=== PATIENT | female | born 1975 | race Two or more races ===

== ENCOUNTER → 2025-05-13 | Outpatient (CLI) | payer MEDICAID, SELFPAY ==
--- NOTE | 2025-05-13 08:00 | XR_ITS ---
Examination: Breast ultrasound, unilateral, right complete Date and time of exam: May 13, 2025, 0835 hours INDICATIONS: Palpable lump with pain in the lower outer right breast note is beginning one month ago Technique: Real-time rousseau scale ultrasonographic imaging performed right breast including all 4 quadrants as well as nipple retroareolar and axillary region. Findings: 7:00 solid mass with indistinct margins 27 x 20 x 25 mm 8:00 nodule 12 x 12 mm poorly circumscribed 8:00 nodule circumscribed 8 x 9 mm IMPRESSION: BI-RADS Category 4: Suspicious for malignancy Suspicious nodule 7:00 position right breast indistinct margins, 2.7 x 2.0 x 2.5 cm, biopsy is needed to exclude breast carcinoma, this mass is amenable to ultrasound-guided breast biopsy for diagnosis
--- NOTE | 2025-05-13 08:30 | XR_ITS ---
Examination: Diagnostic digital mammography, bilateral Computer aided detection 3-D breast Tomosynthesis, bilateral Date and time of exam: April 16, 2025, 0854 hours INDICATIONS: Patient states right breast lump one month Technique: Nonmagnified MLO, CC views of the breasts to been obtained, reconstructed from 3-D Tomosynthesis images. R2 computer aided detection program utilized for evaluation of suspicious masses and/or abnormal calcifications. 3-D Tomosynthesis images obtained. Findings: The breasts are heterogeneously dense, which may obscure small masses 25 mm nodule indistinct margins 7 to 8:00 position right breast at the palpable marker site 8:00 nodule 12 mm circumscribed Bilobed nodule circumscribed 11 mm retroareolar right breast 22 mm focal asymmetry upper outer left breast posterior depth Impression: BI-RADS Category 4: Suspicious for malignancy Suspicious nodule, 25 mm, 7- 8:00 position right breast of the palpable marker site also noted on the right breast sonogram today, biopsy is needed to exclude breast carcinoma, this mass is amenable to ultrasound-guided breast biopsy for diagnosis Recommend follow-up spot tomographic views of 22 mm focal asymmetry upper outer left breast as well as left breast sonography to complete the workup.
== END | disposition home or self-care (01) ==
LOC: CDIM 08:02
PROVIDERS: Referring Provider Internal Medicine; Visit Provider Internal Medicine
DX: R92.343 Mammographic extreme density, bilateral breasts (principal); N63.13 Unspecified lump in the right breast, lower outer quadrant; N64.89 Other specified disorders of breast
CPT/HCPCS: 76641; 77062; 77066; G0279

== ENCOUNTER → 2025-07-16 | Outpatient (CLI) | payer MEDICAID, SELFPAY ==
[2025-07-15 12:11] LABS: Basophils # (Auto) 0.0 Thou/mm3 (0.0-0.2); Basophils % (Auto) 0 % (0-2.5); Eosinophils # (Auto) 0.1 Thou/mm3 (0.0-0.5); Eosinophils % (Auto) 1 % (0-10); Hematocrit 43.8 % (36.0-46.0); Hemoglobin 14.7 g/dL (12.0-16.0); Immature Granulocytes Auto 0.04 Thou/mm3 (0.00-0.00); Lymphocytes # (Auto) 2.4 Thou/mm3 (1.0-4.8); Lymphocytes % (Auto) 24 % (10-50); Mean Corpuscular HGB Conc 33.6 g/dl (31.0-37.0); Mean Corpuscular Hemoglobin 31.6 pg (25.0-35.0); Mean Corpuscular Volume 94 fL (80-100); Monocytes # (Auto) 1.0 Thou/mm3 (0.0-0.8); Monocytes % (Auto) 10 % (0-12); Neutrophils # (Auto) 6.3 Thou/mm3 (1.8-7.7); Neutrophils % (Auto) 64 % (37-80); Nucleated Red Blood Cell # 0.00 Thou/mm3 (0.00-0.00); Nucleated Red Blood Cell % 0 /100 WBC (0); Platelet Count 380 Thou/mm3 (140-440); RDW Standard Deviation 44.1 fL (36.4-46.3); Red Blood Count 4.65 Miln/mm3 (4.00-5.20); White Blood Count 9.9 Thou/mm3 (3.6-11.0)
[2025-07-15 12:37] LABS: INR 1.0 (0.9-1.3); Partial Thromboplastin Time 26.0 Seconds (22.0-36.0); Prothrombin Time 10.4 Seconds (9.0-12.2)
--- NOTE | 2025-07-16 08:30 | XR_ITS ---
Examinations: Ultrasound-guided percutaneous breast biopsy, right breast 7:00 nodule Right breast sonography Limited INDICATIONS: BI-RADS 4 suspicious nodule 7 o'clock position right breast Ultrasound examination 05/13/2025. Exam date and time: July 16, 2025, 0835 hours. Informed consent provided. Technique: A timeout was completed verifying correct patient, procedure, site, positioning, and special equipment if applicable Informed consent provided. The patient was placed in a supine position for the breast biopsy. Sonographic images of the breast were performed for localization of the suspicious nodule The patient's breast was prepped and draped in sterile fashion. Maximum sterile barrier technique, hand hygiene, ultrasound sterile technique 1% lidocaine was used to anesthetize the skin and breast adjacent to the suspicious nodule. Utilizing ultrasonographic guidance, 8 core biopsies were obtained of the suspicious nodule utilizing an 18-gauge BioPince needle. The specimens appears satisfactory. US guided breast biopsy marker placement. Estimated blood loss 3 cc. The patient tolerated the procedure well and there were no complications. Impression: Successful ultrasound-guided percutaneous breast biopsy, right breast 7:00 nodule. Ultrasound guided breast biopsy marker placement.
== END | disposition home or self-care (01) ==
LOC: SDIM 07:51
PROVIDERS: Radiology Diagnostic Radiology
DX: C50.511 Malignant neoplasm of lower-outer quadrant of right female breast (principal); Z17.1 Estrogen receptor negative status [ER-]; N63.13 Unspecified lump in the right breast, lower outer quadrant; Z17.22 Progesterone receptor negative status
CPT/HCPCS: 19083; 36415; 85025; 85610; 85730; A4648